=== PATIENT | female | born 1980 | race Caucasian/White ===

== ENCOUNTER 2016-05-04 10:52 | Emergency (ER) | payer BC, MEDICAID ==
[2016-05-04 10:57] VITALS: O2SAT 98
[2016-05-04] MEDS ORDERED: METOCLOPRAMIDE 10 MG/2 ML VIAL IVP ONE (11:31)
[2016-05-04] MEDS ORDERED: NS 1,000 ML IV ONE (11:31)
[2016-05-04] MEDS ORDERED: ONDANSETRON 4 MG/2 ML VIAL IVP ONE ×2 (11:32→13:06)
[2016-05-04] MEDS ORDERED: HYDROmorphONE/DILAUDID 1 MG/ML SYR IVP ONE (13:06)
--- NOTE | 2016-05-04 13:06 | EDPHY ---
H & P Stated Complaint: migraine started yesterday. starting to lose vision. HPI/ROS: CHIEF COMPLAINT: Headache HISTORY OF PRESENT ILLNESS: patient complains of 2 days history of migraine headache. This is the exact same pain she has with her long history of migraines. It is primarily left-sided but also on the right at times. Associated with photophobia, phonophobia. Some nausea and vomiting. No neck pain or stiffness. No fever chills. Some change in the vision of her left eye, which is also consistent with her previous headaches. No tearing of the eyes. No runny nose. No cough or congestion. No improvement with ibuprofen at home. Seen by primary care physician manages this, but she has no prophylaxis or emergent treatment. No other associated complaints or modifying factors. REVIEW OF SYSTEMS: Ten systems reviewed and are negative unless otherwise noted in the HPI EXAMINATION General Appearance: Alert, no distress Head: normocephalic, atraumatic Eyes: Pupils equal and round, no conjunctival pallor or injection . EOM intact. No nystagmus. ENT, Mouth: Mucous membranes moist . Uvula midline. No lesions. Neck: Normal inspection, supple, non-tender . Range of motion in all planes without pain Respiratory: Lungs are clear to auscultation. No rhonchi or consolidation Cardiovascular: Regular rate and rhythm Gastrointestinal: Abdomen is soft and nontender Back: non-tender, no bony abnormalities Neurological: A&O, 2 through 12 grossly intact. No focal deficits. Strength is 5/5 in all limbs. Sensory intact bilaterally. Skin: Warm and dry, no rash Extremities: Nontender, no pedal edema Psychiatric: Mood and affect normal DIFFERENTIAL DIAGNOSES: Including but not limited to Migraine headache, cephalgia, tension headache, cluster headache MDM: 1:02 p.m. headache that is described consistent with her previous migraine headaches. There is no difference in the pain. No sudden onset. No meningismus. No fever or chills. No confusion or stroke-like symptoms. she is feeling minimally improved since we commence medications. Will add further pain medication for her at this time. She is still hemodynamically stable with no neuro deficits. She is requesting that we not perform any laboratory studies yet. 2:00 p.m. I re-evaluated the patient. She is still awake alert and feeling much better than time of admission. I did offer CT scan laboratory studies, and LP for further workup, but she has declined. She would like to be discharged home at this time. I do feel she is stable to do so. She will be discharged home with Fioricet with codeine and ER precautions. Return for worsening headache, neck pain or stiffness, fever chills. Patient is comfortable with this plan and discharged home stable condition SUPERVISION:This patient was independently evaluated without the aide of supervising physician. Source: Patient Exam Limitations: No limitations - Personal History LMP (Females 10-55): Extended Cycle BCP/Inj Current Tetanus Diphtheria and Acellular Pertussis (TDAP): Yes - Medical/Surgical History Hx Asthma: No Hx Chronic Respiratory Disease: No Hx Diabetes: No Hx Cardiac Disease: No Hx Renal Disease: No Hx Cirrhosis: No Hx Alcoholism: No Hx HIV/AIDS: No Hx Splenectomy or Spleen Trauma: No Other PMH: Migraines. spinal fusion 2008 - Social History Smoking Status: Heavy smoker Constitutional: Initial Vital Signs Temperature (C) 98.2 F 05/04/16 10:54 Heart Rate 102 H 05/04/16 10:54 Respiratory Rate 18 05/04/16 10:54 Blood Pressure 133/77 H 05/04/16 10:54 O2 Sat (%) 98 05/04/16 10:54 O2 Delivery Mode Room Air Allergies/Adverse Reactions: acetaminophen [From Vicodin] Allergy (Verified 05/04/16 10:57) hydrocodone bitartrate [From Vicodin] Allergy (Verified 05/04/16 10:57) Home Medications: Medication Instructions Recorded Codeine/Butalbit/Acetamin/Caff 1 each PO Q6 PRN #20 capsule 05/04/16 [Fioricet-Cod 81-01-034-40 Cap] Ondansetron Odt [Zofran Odt 4 mg 4 mg PO Q4 PRN #12 tab 05/04/16 (*)] Prozac 40 mg 05/04/16 Xanax 05/04/16 Medical Decision Making - Data Points Medications Given: Discontinued Medications Diphenhydramine HCl (Benadryl Injection) 50 mg IVP EDNOW ONE Stop: 05/04/16 11:32 Last Admin: 05/04/16 11:45 Dose: 50 mg Sodium Chloride (Ns) 1,000 mls @ 0 mls/hr IV ONCE ONE PRN Reason: Wide Open Stop: 05/04/16 11:32 Last Admin: 05/04/16 11:45 Dose: 1,000 mls Metoclopramide HCl (Reglan Injection) 10 mg IVP EDNOW ONE Stop: 05/04/16 11:32 Last Admin: 05/04/16 11:45 Dose: 10 mg Ondansetron HCl (Zofran) 4 mg IVP EDNOW ONE Stop: 05/04/16 11:33 Last Admin: 05/04/16 11:45 Dose: 4 mg Departure - Departure Disposition: Home, Routine, Self-Care Clinical Impression: Acute headache Qualifiers: Headache type: unspecified Intractability: not intractable Qualifier Code: (R51 ) Headache Condition: Good Instructions: Migraine Headache (ED), Acute Headache (ED) Referrals: [place],. [Primary Care Provider] - As per Instructions Renny Martinez MD [Medical Doctor] - As per Instructions Prescriptions: Codeine/Butalbit/Acetamin/Caff [Fioricet-Cod 18-16-129-40 Cap] 1 each PO Q6 PRN #20 capsule PRN Reason: Headache Ondansetron Odt [Zofran Odt 4 mg (*)] 4 mg PO Q4 PRN #12 tab PRN Reason: Nausea/Vomiting, Use 1st
[2016-05-04 14:23] VITALS: BP 166/47; PULSE 76; RESP 16; TEMP 97.3
== END 2016-05-04 14:23 | disposition home or self-care (01) ==
DX: R51 Headache (principal); F17.200 Nicotine dependence, unspecified, uncomplicated
CPT/HCPCS: 96374; J1170; J2405; J2765